=== PATIENT | female | born 1955 | race Caucasian/White ===

== ENCOUNTER 2017-03-05 22:40 | Emergency (ER) | payer OTHER ==
[2017-03-05 22:52] VITALS: TEMP 97.5
[2017-03-05] MEDS ORDERED: NS 1,000 ML IV ONE (23:02)
--- NOTE | 2017-03-05 23:02 | EDPHY ---
H & P Stated Complaint: weakness, dizzy, nausea- might be anemic HPI/ROS: HPI CHIEF COMPLAINT: Generalized weakness, dizziness, nausea, "I think I am anemic " "I need my Blood count Checked" HISTORY OF PRESENT ILLNESS: This patient very pleasant 61-year-old female she tells me that she has had multiple blood transfusions for anemia from acute blood loss there gastrointestinal system but is never told where she is actually losing blood from. She presents emergency room stating that she feels very fatigued, complain of generalized weakness, dizziness and nausea she thinks she is anemic and she thinks she needs a blood transfusion. She tells me that she has a very complicated medical history which includes metastatic ovarian cancer, need for multiple blood transfusion from GI bleed, multiple abdominal surgeries including about abdominal intestinal resection. She states she was out tonight began feeling fatigued denies chest pain or shortness of breath denies dyspnea on exertion. Denies abdominal pain. She does tell me that she seen some dark blood in her stool with clots. She thinks she needs blood transfusion. Of note this patient very difficult historian. She tells me she normally gets her healthcare at [facility]. Past Medical History: Blood loss anemia, metastatic ovarian cancer, atenolol times for irregular heart rate. Past Surgical History: Multiple abdominal surgeries Social History: Occasional alcohol use, tells me she is homeless, denies drugs or tobacco Family History: Noncontributory ROS REVIEW OF SYSTEMS: A comprehensive 10 point review of systems is otherwise negative aside from elements mentioned in the history of present illness. Exam Constitutional appears nontoxic triage nursing summary reviewed, vital signs reviewed, awake/alert. Eyes pale conjunctivae , EOMI, PERRLA. HENT neck, no carotid bruit, TMs are clear bilaterally,, no cerumen impaction normal inspection, atraumatic, moist mucus membranes, no epistaxis, neck supple / no meningismus, no raccoon eyes. Respiratory clear to auscultation bilaterally, normal breath sounds, no respiratory distress, no wheezing. Cardiovascular rate normal, regular rhythm, no murmur, no edema, distal pulses normal. Gastrointestinal soft, non-tender, no rebound, no guarding, normal bowel sounds, no distension, no pulsatile mass. Rectal Exam: Rekha RN at bedside. Brown stool. No blood. No palpable mass or hemorrhoids. Genitourinary no CVA tenderness. Musculoskeletal no midline vertebral tenderness, full range of motion, no calf swelling, no tenderness of extremities, no meningismus, good pulses, neurovascularly intact. Skin pink, warm, & dry, no rash, skin atraumatic. Neurologic awake, alert and oriented x 3, AAOx3, moves all 4 extremities equally, motor intact, sensory intact, CN II-XII intact, normal cerebellar, normal vision, normal speech. Psychiatric normal mood/affect. Heme/Lymph/Immune no lymphadenopathy. Differential Diagnosis: Includes but is not limited to in a particular order electrolyte disturbance, dehydration, infection, anemia, acute blood loss anemia from GI tract, ACS Medical Decision Making: Plan for this patient placed on full skein drier, check EKG, IV establishment, blood draw, type and screen. Check electrolytes. Check for infection check with see if she is anemic. Re-evaluation: EKG interpretation by me on record in [facility] [employer] [facility] system. Impression time of EKG 2320, sinus rhythm rate of 65. No acute ischemic changes. Specifically no ST elevation, ST depression T-wave abnormalities. Normal intervals. 1241AM: Re-examination at this time this patient is resting comfortably. She does complain of positional dizziness at times specifically complains when she moves her head she at times gets room spinning. She tells me this been going on for 3 weeks. She denies chest pain or shortness of breath. Her blood work is reassuring. She is in fact not critically anemic and does not need a blood transfusion. I have printed her lab work for her. She denies chest pain or shortness of breath. She is requesting go home she would like to be discharged home. I explained that if she can't ambulate without a great difficulty does not feel acutely dizzy or feel like she is going to fall I will allow her to go home. She does tell me she takes meclizine but does not like to take it. She has been dealing with dizziness chronically but worse over the past 3 weeks. She describes as somewhat like her head is spinning. Worse with positional changes of her head. 1243AM: Patient has a normal neurological exam she ambulated well throughout the emergency room. She did not fall. She had a steady gait. She again is requesting discharge. I will refer to ENT for dizziness. Again I went over blood work, EKG, troponin. She is resting comfortably. Nonischemic EKG troponin negative. No chest pain or shortness of breath. Main complaint was fatigue. Dizziness, generalized weakness. Blood work is reassuring she feels better about this. I do recommend she follows up with ENT and Neurology about dizziness she has been having chronically. But worse over the past 3 weeks. She has normal neurological exam do not feel at this time a CT scan head without contrast would benefit her. She is agreeable on discharge infected like to go home it is noted I did offer admission for dizziness however she declined admission to the hospital. Source: Patient - Personal History Current Tetanus Diphtheria and Acellular Pertussis (TDAP): Yes - Medical/Surgical History Hx Asthma: No Hx Chronic Respiratory Disease: No Hx Diabetes: No Hx Cardiac Disease: Yes Hx Renal Disease: No Hx Cirrhosis: No Hx Alcoholism: No Hx HIV/AIDS: No Hx Splenectomy or Spleen Trauma: No Other PMH: anemic. ovarian CA, stroke , heart valve issue - Social History Smoking Status: Never smoked Constitutional: Initial Vital Signs Temperature (C) 36.4 C 03/05/17 22:48 Heart Rate 71 03/05/17 22:48 Respiratory Rate 20 03/05/17 22:48 Blood Pressure 124/66 H 03/05/17 22:48 O2 Sat (%) 98 03/05/17 22:48 O2 Delivery Mode Room Air Allergies/Adverse Reactions: acetaminophen [From Tylenol] Allergy (Verified 03/05/17 22:47) adhesive tape Allergy (Verified 03/05/17 22:47) niacin Allergy (Verified 03/05/17 22:47) Home Medications: Medication Instructions Recorded NK [No Known Home Meds] 03/05/17 Medical Decision Making - Diagnostics Imaging Results: Imaging Impressions Chest X-Ray 03/05/17 23:02 Impression: Minimal bronchitis. Minimal atelectasis or early infiltrate lingula. - Data Points Laboratory Results: Laboratory Results 03/05/17 23:30 03/05/17 23:30 03/06/17 03/06/17 03/05/17 00:15 00:02 23:30 WBC RBC Hgb Hct MCV MCH MCHC RDW Plt Count MPV Neut % (Auto) Lymph % (Auto) [place] % (Auto) Eos % (Auto) Baso % (Auto) Nucleat RBC Rel Count Absolute Neuts (auto) Absolute Lymphs (auto) Absolute Monos (auto) Absolute Eos (auto) Absolute Basos (auto) Absolute Nucleated RBC Immature Gran % Immature Gran # PT INR APTT Sodium Potassium Chloride Carbon Dioxide Anion Gap BUN Creatinine Estimated GFR Glucose Calcium Magnesium Total Bilirubin Conjugated Bilirubin Unconjugated Bilirubin AST ALT Alkaline Phosphatase Creatine Kinase CK-MB (CK-2) Fraction Troponin I Total Protein Albumin Lipase Urine Color YELLOW Urine Appearance CLEAR Urine pH 6.0 (5.0-7.5) Ur Specific [place] 1.017 (1.002-1.030) Urine Protein NEGATIVE (NEGATIVE) Urine Ketones NEGATIVE (NEGATIVE) Urine Blood NEGATIVE (NEGATIVE) Urine Nitrate NEGATIVE (NEGATIVE) Urine Bilirubin NEGATIVE (NEGATIVE) Urine Urobilinogen NEGATIVE EU EU (0.2-1.0) Ur Leukocyte Esterase TRACE H (NEGATIVE) Urine RBC 1-3 /hpf /hpf (0-3) Urine WBC 1-3 /hpf /hpf (0-3) Ur Epithelial Cells TRACE /lpf /lpf (NONE-1+) Urine Mucus TRACE /lpf /lpf (NONE-1+) Urine Glucose NEGATIVE (NEGATIVE) Stool Occult Bld Scrn NEGATIVE (NEGATIVE) Patient ABO/Rh Pending Antibody Screen Pending 03/05/17 03/05/17 03/05/17 23:30 23:30 23:30 WBC 8.14 10^3/uL 10^3/uL (3.80-9.50) RBC 4.77 10^6/uL 10^6/uL (4.18-5.33) Hgb 11.5 g/dL L g/dL (12.6-16.3) Hct 36.6 % L % (38.0-47.0) MCV 76.7 fL L fL (81.5-99.8) MCH 24.1 pg L pg (27.9-34.1) MCHC 31.4 g/dL L g/dL (32.4-36.7) RDW 17.2 % H % (11.5-15.2) Plt Count 355 10^3/uL 10^3/uL (150-400) MPV 9.9 fL fL (8.7-11.7) Neut % (Auto) 59.4 % % (39.3-74.2) Lymph % (Auto) 28.5 % % (15.0-45.0) [place] % (Auto) 8.5 % % (4.5-13.0) Eos % (Auto) 2.1 % % (0.6-7.6) Baso % (Auto) 1.0 % % (0.3-1.7) Nucleat RBC Rel Count 0.0 % % (0.0-0.2) Absolute Neuts (auto) 4.84 10^3/uL 10^3/uL (1.70-6.50) Absolute Lymphs (auto) 2.32 10^3/uL 10^3/uL (1.00-3.00) Absolute Monos (auto) 0.69 10^3/uL 10^3/uL (0.30-0.80) Absolute Eos (auto) 0.17 10^3/uL 10^3/uL (0.03-0.40) Absolute Basos (auto) 0.08 10^3/uL 10^3/uL (0.02-0.10) Absolute Nucleated RBC 0.00 10^3/uL 10^3/uL (0-0.01) Immature Gran % 0.5 % % (0.0-1.1) Immature Gran # 0.04 10^3/uL 10^3/uL (0.00-0.10) PT 14.3 SEC SEC (12.0-15.0) INR 1.12 (0.83-1.16) APTT 31.2 SEC SEC (23.0-38.0) Sodium 136 mEq/L mEq/L (134-144) Potassium 3.7 mEq/L mEq/L (3.5-5.2) Chloride 103 mEq/L mEq/L (97-110) Carbon Dioxide 22 mEq/l mEq/l (22-31) Anion Gap 11 mEq/L mEq/L (8-16) BUN 17 mg/dL mg/dL (7-23) Creatinine 1.0 mg/dL mg/dL (0.6-1.0) Estimated GFR 56 Glucose 110 mg/dL H mg/dL (70-100) Calcium 9.6 mg/dL mg/dL (8.5-10.4) Magnesium 1.9 mg/dL mg/dL (1.6-2.3) Total Bilirubin 0.6 mg/dL mg/dL (0.1-1.4) Conjugated Bilirubin 0.2 mg/dL mg/dL (0.0-0.5) Unconjugated Bilirubin 0.4 mg/dL mg/dL (0.0-1.1) AST 33 IU/L IU/L (14-46) ALT 30 IU/L IU/L (9-52) Alkaline Phosphatase 141 IU/L H IU/L (38-126) Creatine Kinase 138 IU/L IU/L (0-156) CK-MB (CK-2) Fraction 1.07 ng/mL ng/mL (0-3.19) Troponin I < 0.012 ng/mL ng/mL (0-0.034) Total Protein 6.4 g/dL g/dL (6.3-8.2) Albumin 3.6 g/dL g/dL (3.5-5.0) Lipase 242.0 IU/L IU/L (23-300) Urine Color Urine Appearance Urine pH Ur Specific [place] Urine Protein Urine Ketones Urine Blood Urine Nitrate Urine Bilirubin Urine Urobilinogen Ur Leukocyte Esterase Urine RBC Urine WBC Ur Epithelial Cells Urine Mucus Urine Glucose Stool Occult Bld Scrn Patient ABO/Rh Antibody Screen Medications Given: Discontinued Medications Sodium Chloride (Ns) 1,000 mls @ 0 mls/hr IV ONCE ONE; Wide Open PRN Reason: Protocol Stop: 03/05/17 23:03 Last Admin: 03/05/17 23:37 Dose: 1,000 mls Departure - Departure Disposition: Home, Routine, Self-Care Clinical Impression: Dizziness Fatigue Qualifiers: Fatigue type: unspecified Qualified Code(s): R53.83 - Other fatigue Condition: Good Instructions: Fatigue (ED) Additional Instructions: 1. Please return emergency room if develops any worsening symptoms includes severe dizziness, nausea, vomiting, chest pain or shortness of breath. 2. I do recommend he follow up with [facility] Th[facility] as well as Neurology. Please call their for an appointment. Referrals: Nilam Dye DO [Primary Care Provider] - As per Instructions Alexx Dye DO [Medical Doctor] - As per Instructions Alaina Reyez MD [Medical Doctor] - As per Instructions
--- NOTE | 2017-03-05 23:21 | CPEKG ---
Heart Rate: 65 RR Interval: 923 P-R Interval: 188 QRSD Interval: 88 QT Interval: 440 QTC Interval: 458 P Bayard: 65 QRS [place]ard: 58 T Wave Bay[place]: 45 EKG Severity - NORMAL ECG - EKG Impression: SINUS RHYTHM Electronically Signed By: Matt Mcgraw 06-Mar-2017 06:44:44
[2017-03-05 23:40] LABS: % IMMATURE GRANULYOCYTES 0.5 % (0.0-1.1); ABSOLUTE IMMATURE GRANULOCYTES 0.04 10^3/uL (0.00-0.10); ADD DIFF? NO; ADD MORPH? NO; ADD SCAN? NO; ATYPICAL LYMPHOCYTE FLAG 0 (0-99); FRAGMENT RBC FLAG 20 (0-99); HEMATOCRIT 36.6 % (38.0-47.0); HEMOGLOBIN 11.5 g/dL (12.6-16.3); LEFT SHIFT FLG 0 (0-99); LIPEMIA HEMOLYSIS FLAG 80 (0-99); MEAN CELL HEMOGLOBIN 24.1 pg (27.9-34.1); MEAN CELL HEMOGLOBIN CONCENTR. 31.4 g/dL (32.4-36.7); MEAN CELL VOLUME 76.7 fL (81.5-99.8); MEAN PLATELET VOLUME 9.9 fL (8.7-11.7); PLATELET CLUMPS FLAG 0 (0-99); PLATELET COUNT 355 10^3/uL (150-400); RED BLOOD CELL COUNT 4.77 10^6/uL (4.18-5.33); RED CELL DISTRIBUTION WIDTH 17.2 % (11.5-15.2)
[2017-03-05 23:46] VITALS: RESP 18
[2017-03-05 23:50] LABS: INR 1.12 (0.83-1.16); PROTIME(PATIENT) 14.3 SEC (12.0-15.0)
[2017-03-05 23:51] LABS: APTT 31.2 SEC (23.0-38.0)
[2017-03-05 23:55] LABS: ALANINE AMINOTRANSFERASE 30 IU/L (9-52); ALBUMIN 3.6 g/dL (3.5-5.0); ALKALINE PHOSPHATASE 141 IU/L (38-126); ANION GAP 11 mEq/L (8-16); ASPARTATE AMINOTRANSFERASE 33 IU/L (14-46); BILIRUBIN,TOTAL 0.6 mg/dL (0.1-1.4); BILIRUBIN-CONJUGATED 0.2 mg/dL (0.0-0.5); BILIRUBIN-UNCONJUGATED 0.4 mg/dL (0.0-1.1); CALCIUM 9.6 mg/dL (8.5-10.4); CARBON DIOXIDE 22 mEq/l (22-31); CHLORIDE 103 mEq/L (97-110); GLOMERULAR FILTRATION RATE 56; GLUCOSE 110 mg/dL (70-100); MAGNESIUM 1.9 mg/dL (1.6-2.3); POTASSIUM 3.7 mEq/L (3.5-5.2); SODIUM 136 mEq/L (134-144); TOTAL PROTEIN 6.4 g/dL (6.3-8.2)
[2017-03-06 00:14] LABS: CREATINE KINASE-MB FRACTION 1.07 ng/mL (0-3.19); TROPONIN I < 0.012 ng/mL (0-0.034)
[2017-03-06 00:30] LABS: COLOR YELLOW; LEUKOCYTE ESTERASE,URINE TRACE (NEGATIVE); NITRITE,URINE NEGATIVE (NEGATIVE)
[2017-03-06 00:35] LABS: MUCUS TRACE /lpf (NONE-1+)
[2017-03-06 00:58] VITALS: BP 113/56; PULSE 89; O2SAT 96
== END 2017-03-06 01:01 | disposition home or self-care (01) ==
DX: R42 Dizziness and giddiness (principal); R53.83 Other fatigue; Z85.43 Personal history of malignant neoplasm of ovary